=== PATIENT | male | born 1935 | race Caucasian/White ===

== ENCOUNTER 2017-10-03 12:15 | Emergency (ER) | payer OTHER ==
[~2017-10-03] VITALS: Ht 172.7 cm; Wt 65.8 kg
--- NOTE | ~2017-10-03 | EKG ---
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1935 Requested By: Kya Saenz Order Number: [id number] MD: Mike Vasquez Measurements Intervals [place] Rate: 56 P: 35 NC: 292 QRS: 44 QRSD: 129 T: QT: 500 QTc: 483 Interpretive Statements Sinus rhythm Ventricular premature complex Prolonged NC interval Left bundle branch block No previous ECG available for comparison Electronically Signed On 10-03-2017 16:55:32 CDT by Mike Vasquez [email or web address] <ELECTRONICALLY SIGNED> By: Mike Vasquez MD, [facility] 10/03/17 1655 1406 1406 Mike Vasquez MD, FACC /EPI
[~2017-10-03 12:15] MED LIST: PEPCID40 MG PO
[2017-10-03 14:45] VITALS: BP 103/56
== END 2017-10-03 15:15 | disposition left against medical advice (07) ==
LOC: ER 12:15
DX: F80.9 Developmental disorder of speech and language, unspecified (principal); R53.1 Weakness